=== PATIENT | male | born 1995 | race African-American/Black ===

== ENCOUNTER 2017-11-27 10:30 | Emergency (ER) | payer MEDICAID ==
[~2017-11-27] VITALS: Ht 193 cm; Wt 107.0 kg
[2017-11-27 18:30] VITALS: BP 145/88
[2017-11-27] MEDS ORDERED: CEFTRIAXONE SODIUM 250 MG/VIAL IM ONE (18:45)
[2017-11-27] MEDS ORDERED: DOXYCYCLINE HYCLATE 100MG CAPSULE PO ONE (18:45)
[2017-11-27 19:29] LABS: CLARITY URINE CLEAR (CLEAR); COLOR URINE YELLOW (YELLOW); KETONES URINE NEGATIVE (NEGATIVE); LEUKOCYTE ESTERASE URINE NEGATIVE (NEGATIVE); NITRITE URINE NEGATIVE (NEGATIVE); OCCULT BLOOD URINE NEGATIVE (NEGATIVE); PROTEIN URINE NEGATIVE (NEGATIVE); SPECIFIC GRAVITY URINE 1.031 (1.005-1.030); UROBILINOGEN URINE 0.2 E.U./dL (0.2-1.0)
[2017-11-30 04:15] LABS: CHLAMYDIA TRACHOMATIS NAA Negative (Negative); NEISSERIA GONORRHOEAE NAA Negative (Negative)
== END 2017-11-27 20:21 | disposition home or self-care (01) ==
LOC: ER 11:17
DX: R36.9 Urethral discharge, unspecified (principal); Z20.2 Contact with and (suspected) exposure to infections with a predominantly sexual mode of transmission; F17.200 Nicotine dependence, unspecified, uncomplicated; F12.10 Cannabis abuse, uncomplicated; F15.10 Other stimulant abuse, uncomplicated
CPT/HCPCS: 81003; 87086; 87491; 87591; 99284